=== PATIENT | male | born 1980 | race Two or more races ===

== ENCOUNTER 2018-06-22 05:22 | Day surgery (SDC) | payer OTHER ==
[2018-06-22] MEDS ORDERED: ANESTHESIA TRAY IN PYXIS 1 EA TRAY MC ONE (06:33)
[2018-06-22] MEDS ORDERED: BUPIVACAINE 0.25% 75 MG/30 ML VIAL ONE (07:08)
[2018-06-22] MEDS ORDERED: HYDROCODONE/APAP 5/325MG 1 EACH TABLET PO PRN ×2 (09:30)
== END 2018-06-22 08:45 | disposition home or self-care (01) ==
LOC: DS 05:22
PROVIDERS: ATTEND Specialist
DX: G56.01 Carpal tunnel syndrome, right upper limb (principal); G89.29 Other chronic pain; Z79.899 Other long term (current) drug therapy
CPT/HCPCS: 64721; A6402; J0690; J1100; J1885; J2405; J2704; J3490 ×2; J7030